=== PATIENT | male | born 1985 | race Caucasian/White ===

== ENCOUNTER 2019-07-15 07:17 | Inpatient (IN) | payer MEDICAID ==
[~2019-07-15] VITALS: Ht 167.6 cm; Wt 78.9 kg
[2019-07-15 07:31] LABS: BASOPHILS 0.5 % (0-2); EOSINOPHILS 0.7 % (0-7); HEMATOCRIT 36.8 % (42.0-54.0); HEMOGLOBIN 12.5 g/dL (13.5-17.5); IMMATURE GRANULOCYTES 0.2 % (0-5); LYMPHOCYTES 10.1 % (15-50); MCH 31.6 pg (26.0-34.0); MCV 93.2 fL (80.0-100.0); MEAN PLATELET VOLUME 10.8 fL (7.4-10.4); NEUTROPHILS 79.5 % (40-80); PLATELET COUNT 131 10x3/uL (130-400); RBC 3.95 10x6/uL (4.20-6.10); RDW 15.2 % (11.5-14.5); WBC 9.8 10x3/uL (4.8-10.8)
[2019-07-15] MEDS ORDERED: NOVOLIN 70/30 110 ML SC ×2 (07:34→07:35)
[2019-07-15] MEDS ORDERED: CATAPRES0.3 MG PO (07:35)
[2019-07-15] MEDS ORDERED: ZOLOFT50 MG PO (07:35)
[2019-07-15] MEDS ORDERED: ASPIRIN81 MG PO (07:35)
[2019-07-15] MEDS ORDERED: VELPHORO500 MG PO (07:36)
[2019-07-15] MEDS ORDERED: NORVASC10 MG PO (07:36)
[2019-07-15] MEDS ORDERED: HYDRALAZINE HCL25 MG PO (07:37)
[2019-07-15] MEDS ORDERED: VITAMIN D10000 UNI1 PO (07:37)
[2019-07-15] MEDS ORDERED: LIPITOR40 MG PO (07:37)
[2019-07-15 07:40] LABS: ANION GAP 15.2 mmol/L (8-16); CALCIUM 8.9 mg/dL (8.5-10.1); CARBON DIOXIDE 22.7 mmol/L (21.0-32.0); CREATININE - SERUM 10.4 mg/dL (0.6-1.3); POTASSIUM - SERUM 4.9 mmol/L (3.5-5.1)
[2019-07-15 07:45] LABS: ALBUMIN 3.9 g/dL (3.4-5.0); BILIRUBIN - TOTAL 0.37 mg/dL (0.2-1.3); MAGNESIUM - SERUM 2.5 mg/dL (1.8-2.4)
--- NOTE | 2019-07-15 08:07 | NUR ---
PT IS MWF DIALYSIS PATIENT.
[2019-07-15 09:05] VITALS: BP 136/92
--- NOTE | 2019-07-15 09:08 | NUR ---
PT FEELS LIKE HIS BLOOD SUGAR IS DROPPING. FSBS TAKEN AT THIS TIME AND REPORTED RESULT TO . MD GAVE PERMISSION TO ORDER BREAKFAST TRAY FOR PATIENT. WILL CARRY OUT ORDERS.
[2019-07-15 11:30] VITALS: BP 160/81
--- NOTE | 2019-07-15 11:33 | MORECARE ---
CASE MANAGEMENT DISCHARGE SUMMARY PATIENT: NICO GARDINER UNIT: [id number] ADM DATE: 07/15/19 AGE: 33 : 81 SEX: M ROOM/BED: D.2131 AUTHOR: FER DORMAN PHYSICIAN: REFERRING PHYSICIAN: TAJ GILLESPIE MD DATE OF SERVICE: 07/15/19 Discharge Plan Patient Name: NICO GARDINER Facility: [facility]:[place] : 1985 Planned Disposition: Anticipated Discharge Date: Discharge Date: Expected LOS: Initial Reviewer: [email or web address] Initial Review Date: 07/15/2019 Generated: 07/15/19 12:33 pm Patient Name: NICO GARDINER Page 13074 at 1133 All edits/amendments must be made on the electronic document DICTATION DATE: 07/15/19 113 WOODWIND REEDS CUTTER: UMBERTO 07/15/19 1133 RPT#: [id number] DC DATE: STATUS: ADM IN [facility] [address] [place] [address] END OF REPORT
[2019-07-15 11:51] VITALS: BP 160/81; Ht 167.6 cm; Wt 78.9 kg
--- NOTE | 2019-07-15 15:19 | NUR ---
ALERT AND ORIENTED X4. SITTING UP IN BED. LT LEG SHACKLED TO BEDRAIL. GUARD AT BEDSIDE. FSBS 35 TREATED WITH 25mL D50 PER PROTOCOL. DENIES ANY NEEDS AT THIS TIME. CONTINUE TO MONITOR GLUCOSE. REFUSE SCDs.
[2019-07-15 15:30] VITALS: BP 128/72
--- NOTE | 2019-07-15 19:30 | NUR ---
RECEIVED REPORT, WILL ASSUME CARE OF PT, DENIES ANY NEEDS AT THIS TIME, BED IS LOW, SRX2, CALL LIGHT IN REACH, GUARD AT BEDSIDE, WILL CONTINUE PLAN OF CARE
[2019-07-15 20:00] VITALS: BP 160/86
[2019-07-16 00:01] VITALS: BP 182/92
[2019-07-16 05:24] LABS: BASOPHILS 0.4 % (0-2); EOSINOPHILS 1.6 % (0-7); HEMATOCRIT 36.6 % (42.0-54.0); HEMOGLOBIN 12.3 g/dL (13.5-17.5); IMMATURE GRANULOCYTES 0.3 % (0-5); LYMPHOCYTES 12.6 % (15-50); MCH 31.3 pg (26.0-34.0); MCHC 33.6 g/dL (31.0-37.0); MCV 93.1 fL (80.0-100.0); MEAN PLATELET VOLUME 10.7 fL (7.4-10.4); MONOCYTES 8.9 % (2-11); NEUTROPHILS 76.2 % (40-80); PLATELET COUNT 123 10x3/uL (130-400); RBC 3.93 10x6/uL (4.20-6.10); RDW 15.1 % (11.5-14.5); WBC 9.4 10x3/uL (4.8-10.8)
--- NOTE | 2019-07-16 07:20 | NUR ---
PT RECEIVED AWAKE AND ALERT IN BED. GUARD AT BEDSIDE, SHACKLES IN PLACE. BP MEDS GIVEN, PT STATES BP DOES NOT DROP WITH DIALYSIS.
[2019-07-16 07:25] LABS: CALCIUM 8.8 mg/dL (8.5-10.1); CARBON DIOXIDE 22.2 mmol/L (21.0-32.0); CREATININE - SERUM 12.6 mg/dL (0.6-1.3); PHOSPHOROUS 4.1 mg/dL (2.5-4.9)
[2019-07-16 08:34] LABS: POTASSIUM - SERUM 6.2 mmol/L (3.5-5.1)
[2019-07-16 09:52] VITALS: BP 197/107
[2019-07-16 13:58] VITALS: BP 167/102
--- NOTE | 2019-07-16 15:15 | MORECARE ---
CASE MANAGEMENT DISCHARGE SUMMARY PATIENT: NICO GARDINER UNIT: [id number] ADM DATE: 07/15/19 AGE: 33 : 81 SEX: M ROOM/BED: D.2131 AUTHOR: DANDY,DOC PHYSICIAN: REFERRING PHYSICIAN: TAJ GILLESPIE MD DATE OF SERVICE: 07/16/19 Discharge Plan Patient Name: NICO GARDINER Facility: [facility]:[place] : 1985 Planned Disposition: Other Type of Facility Anticipated Discharge Date: 07/16/19 Discharge Date: Expected LOS: 1 Initial Reviewer: [email or web address] Initial Review Date: 07/15/2019 Generated: 07/16/19 4:15 pm Comments DCP- Discharge Planning Updated by [email or web address]: Montez Aragon on 07/16/19 2:[address] Patient Name: NICO GARDINER Admission Status: Elective Accout number: [id number] Admission Date: 07-15-2019 : 1985 Admission Diagnosis: Attending: TAJ GILLESPIE Current LOS: 1 Anticipated DC Date: 07-16-2019 Planned Disposition: Other Type of Facility Primary Insurance: [place] [employer] PL[facility] Discharge Planning Comments: CM MET WITH PT IN DAILYSIS SUITE TO DISCUSS DISCHARGE PLANNING AND NEEDS. PT REPORTS LIVING AT THE RETIRE[facility] IN [place] AND WILL RETURN THERE AT DISCHARGE TODAY. PT HAS DIALYSIS IN THE RETIREMENT ON MWF SCHEDULE. THE RETIREMENT UNIT WILL ARRANGE TRANSPORTATION TO RETURN THERE. CM CALLED AND SPOKE TO MRS. HOUSE AT [facility], , WHO ADVISED THAT A DOCTOR TO DOCTOR CONSULT NEEDS TO BE DONE FOR PT TO RETURN TODAY. CM PROVIDED DR. GILLESPIE WITH DR. CRUZ NUMBER, AND WAS ADVISED THAT THIS WAS ALREADY DONE. [facility] TO ARRANGE TRANSPORTATION BACK TO RETIREMENT AFTER DIALYSIS TODAY. Private Chef: Montez Aragon DCPIA - Discharge Planning Initial Assessment Updated by [email or web address]: Montez Aragon on 07/16/19 3:09 pm * Is the patient Alert and Oriented? Yes * How many steps to enter\exit or inside your home? NONE * PCP DR SKINNER, [facility], * Pharmacy [facility] * Preadmission Environment Other * Other Environment [facility] * Facility Name [facility] * ADLs Independent * Equipment Other * Other Equipment ALL MEDICAL EQUIPMENT PROVIDED BY FACILITY * List name and contact numbers for known caregivers / representatives who currently or will assist patient after discharge: [employer], * Verbal permission to speak to the caregivers and representatives has been obtained from the patient. N/A * Community resources currently utilized Other * Please name any agencies selected above. OUTPATIENT DIALYSIS, MWF IN RETIREMENT UNIT * Additional services required to return to the preadmission environment? No * Can the patient safely return to the preadmission environment? Yes * Has this patient been hospitalized within the prior 30 days at any hospital? No Last DP export: 07/15/19 10:33 am Patient Name: NICO GARDINER Page 73614 at 1515 All edits/amendments must be made on the electronic document DICTATION DATE: 07/16/19 1515 FORGE TENDER: UMBERTO 07/16/19 1515 RPT#: [id number] DC DATE: STATUS: ADM IN [facility] [address] [place] [address] END OF REPORT
--- NOTE | 2019-07-16 17:56 | NUR ---
PT BACK FROM DIALYSIS. DISCHARGE PAPER SIGNED. REPORT CALLED TO [facility]. GUARD IN ROOM ARRANGED FOR TRANSPORT, WILL BE AT SHIFT CHANGE.
[2019-07-17 12:09] LABS: HEPATITIS C ANTIBODY >11.0 S/CO RAT (0.0-0.9)
[2019-07-18 06:09] LABS: HEPATITIS BE ANTIGEN Negative (Negative)
[2019-07-18 13:10] LABS: HEPATITIS BE ANTIBODY Negative (Negative)
== END 2019-07-16 19:09 | DRG 637 ==
LOC: D.ER 07:17 → D.M2 10:39
PROVIDERS: Family Medicine; Internal Medicine Nephrology; ADMIT Internal Medicine Nephrology; ATTEND Internal Medicine Nephrology
PROC: 5A1D70Z Performance of Urinary Filtration, Intermittent, Less than 6 Hours Per Day (ICD-10-PCS; principal; 2019-07-15)
DX: E11.65 Type 2 diabetes mellitus with hyperglycemia (principal); N18.6 End stage renal disease; I12.0 Hypertensive chronic kidney disease with stage 5 chronic kidney disease or end stage renal disease; E87.1 Hypo-osmolality and hyponatremia; F31.30 Bipolar disorder, current episode depressed, mild or moderate severity, unspecified; N25.81 Secondary hyperparathyroidism of renal origin; E11.22 Type 2 diabetes mellitus with diabetic chronic kidney disease; Z99.2 Dependence on renal dialysis; Z79.4 Long term (current) use of insulin; D63.1 Anemia in chronic kidney disease; E87.5 Hyperkalemia; E83.42 Hypomagnesemia; E78.5 Hyperlipidemia, unspecified